=== PATIENT | female | born 1990 | race American Indian/Alaskan Native ===

== ENCOUNTER 2017-03-06 15:00 | Emergency (ER) | payer OTHER ==
[2017-03-06 15:22] VITALS: BP 111/69; PULSE 79; RESP 18; TEMP 98.1; O2SAT 100
[2017-03-06] MEDS ORDERED: Lidocaine 5% Patch TD STA (15:23)
--- NOTE | 2017-03-06 15:27 | C.PDOC ---
History Of Present Illness Patient is a 26 y/o female who presents to the ED with complaints of neck pain for the last 3 days. Patient states the pain started upon awakening and worsened daily; patient notes a limited range of motion when turning neck to the right. Patient denies taking any medication for pain relief and denies headache, dizziness, and numbness. No other complaints at this time. Chief Complaint (Nursing): Upper Extremity Problem/Injury History Per: Patient History/Exam Limitations: no limitations Onset/Duration Of Symptoms: Days (symptoms began 3 days ago. ) Current Symptoms Are (Timing): Still Present Exacerbating Factor(s): Turning (turning head to the right. ) Recent travel outside of the [place]: No Past Medical History Reviewed: Historical Data, Nursing Documentation, Vital Signs Vital Signs: Last Vital Signs Temp 98.1 F 03/06/17 15:15 Pulse 79 03/06/17 15:15 Resp 18 03/06/17 15:15 BP 111/69 03/06/17 15:15 Pulse Ox 100 03/06/17 16:10 - Medical History PMH: No Chronic Diseases Surgical History: No Surg Hx Family History: States: Unknown Family Hx - Social History Hx Tobacco Use: No Hx Alcohol Use: Yes Hx Substance Use: No - Immunization History Hx Tetanus Toxoid Vaccination: No Hx Influenza Vaccination: No Hx Pneumococcal Vaccination: No Review Of Systems Constitutional: Negative for: Fever, Weakness Cardiovascular: Negative for: Chest Pain, Palpitations Respiratory: Negative for: Cough, Shortness of Breath Musculoskeletal: Positive for: Neck Pain Neurological: Negative for: Weakness, Numbness, Headache, Dizziness Physical Exam - Physical Exam Appears: Well, Non-toxic, No Acute Distress Skin: Normal Color, Warm, Dry, No Diaphoretic, No Pale, No Rash Head: Atraumatic, Normacephalic Eye(s): bilateral: Normal Inspection Oral Mucosa: Moist Neck: Decreased ROM, Paracervical Tenderness (greater on right side. ), Other ( muscle spasm on right side. ) Chest: Symmetrical Cardiovascular: Rhythm Regular, No Murmur Respiratory: Normal Breath Sounds, No Rales, No Rhonchi, No Wheezing Back: No Vertebral Tenderness Extremity: Bilateral: Atraumatic, Normal Color And Temperature, Normal ROM Neurological/Psych: Oriented x3, Normal Speech, Other (no focal deficits. 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 She is alert and oriented and stable for discharge Disposition Counseled Patient/Family Regarding: Diagnosis, Need For Followup, Rx Given - Disposition Referrals: [facility] at [facility] [Outside] Disposition: HOME/ ROUTINE Disposition Time: 16:08 Condition: STABLE Additional Instructions: Take Motrin as needed for pain every 6 hours, with food to not upset stomach. Take Flexeril every 8 hours for muscle spasm and pain. Follow up with orthopedic if pain persists over one week. Prescriptions: Cyclobenzaprine [Cyclobenzaprine HCl] 10 mg PO TID #21 tab Ibuprofen [Motrin] 600 mg PO Q8 #30 tab Instructions: Cervical Strain (DC) Forms: [facility] (Colombian) - POA Present On Arrival: None - Clinical Impression Clinical Impression: Neck muscle spasm - Scribe Statement The provider has reviewed the documentation as recorded by the Scribenrico Jean All medical record entries made by the Scribe were at my direction and personally dictated by me. I have reviewed the chart and agree that the record accurately reflects my personal performance of the history, physical exam, medical decision making, and the department course for this patient. I have also personally directed, reviewed, and agree with the discharge instructions and disposition.
[2017-03-06] MEDS ORDERED: Lidocaine 5% Patch TD ONE (15:31)
== END 2017-03-06 16:13 | disposition home or self-care (01) ==
LOC: C.ER 15:00
DX: M62.838 Other muscle spasm (principal)

== ENCOUNTER 2018-10-11 12:44 | Emergency (ER) | payer OTHER ==
[2018-10-11 13:39] VITALS: O2SAT 100
[2018-10-11] MEDS ORDERED: guaiFENesin 100 mg/5 ml Syrup UD PO STA (14:30)
[2018-10-11] MEDS ORDERED: guaiFENesin 200 mg/10 ml Syrup UD ONE (14:39)
--- NOTE | 2018-10-11 14:45 | C.PDOC ---
History Of Present Illness 28-year-old female presents to the ED for evaluation of cough and chest congestion which began two days ago. Patient also admits to nasal congestion and rhinorrhea. She denies fever, chills, sore throat, nausea, vomiting, generalized body aches, seasonal allergies or sick contacts. Chief Complaint (Nursing): Flu-like Symptoms History Per: Patient History/Exam Limitations: no limitations Onset/Duration Of Symptoms: Days (2) Current Symptoms Are (Timing): Still Present Location Of Pain: Diffuse Myalgias Associated Symptoms: denies: Fever, Chills, Sore Throat, Nausea, Vomiting Additional History Per: Patient Past Medical History Reviewed: Historical Data, Nursing Documentation, Vital Signs Vital Signs: Last Vital Signs Temp 98.3 F 10/11/18 13:36 Pulse 75 10/11/18 13:36 Resp 20 10/11/18 13:36 BP 124/72 10/11/18 13:36 Pulse Ox 100 10/11/18 13:36 Primary Care Provider: Non [facility] Provider, - Medical History PMH: No Chronic Diseases Surgical History: No Surg Hx Family History: States: Unknown Family Hx - Social History Hx Tobacco Use: No Hx Alcohol Use: Yes Hx Substance Use: No - Immunization History Hx Tetanus Toxoid Vaccination: No Hx Influenza Vaccination: No Hx Pneumococcal Vaccination: No Review Of Systems Constitutional: Negative for: Fever, Chills ENT: Positive for: Nose Discharge, Nose Congestion Respiratory: Positive for: Cough Gastrointestinal: Negative for: Nausea, Vomiting Musculoskeletal: Positive for: Other (generalized body aches ) Physical Exam - Physical Exam Appears: Non-toxic, No Acute Distress Skin: Normal Color, Warm, Dry Head: Atraumatic, Normacephalic Eye(s): bilateral: Normal Inspection Ear(s): Bilateral: Normal Nose: No Discharge Oral Mucosa: Moist Tongue: Normal Appearing Lips: Normal Appearing Throat: No Erythema, No Exudate Neck: Normal ROM, Trachea Midline, Supple Chest: Symmetrical, No Deformity, No Tenderness Cardiovascular: Rhythm Regular, No Murmur Respiratory: Normal Breath Sounds, No Rales, No Rhonchi, No Wheezing Gastrointestinal/Abdominal: Soft, No Tenderness, No Guarding, No Rebound Neurological/Psych: Oriented x3, Normal Speech, Normal Cognition ED Course And Treatment O2 Sat by Pulse Oximetry: 100 (on RA) Pulse Ox Interpretation: Normal Medical Decision Making Medical Decision Making: Impression: 28 y/o female with cough, congestion Plan: * Robitussin PO * Sudafed PO * Flu swab * reassess and disposition Progress: Robitussin PO and Sudafed PO given. Flu swab ordered, resulted negative. On reassessment, patient is resting comfortably, showing no signs of distress and is stable for discharge. Patient is advised to f/u with her PMD within 1-2 days for further evaluation. Disposition Counseled Patient/Family Regarding: Studies Performed, Diagnosis, Need For Followup, Rx Given - Disposition Referrals: [facility] at [facility] [Outside] Disposition: HOME/ ROUTINE Disposition Time: 14:43 Condition: STABLE Additional Instructions: Take meds as prescribed Rest and Hydration Follow up with PMD in 1-2 days Return to the ED if symptoms worsen Prescriptions: Benzonatate [Tessalon Perles] 100 mg PO TID #30 sgl Pseudoephedrine HCl [Sudafed 24-Hour] 240 mg PO DAILY #7 tab.er.24h Instructions: Cough, Runny Nose, and the Common Cold (DC) Forms: [employer] (Icelandic) - Clinical Impression Clinical Impression: Cough, Nasal congestion - PA / AD TAKER / Resident Statement MD/DO has reviewed & agrees with the documentation as recorded. - Scribe Statement The provider has reviewed the documentation as recorded by the Scribe (Ester Garcia) All medical record entries made by the Scribe were at my direction and personally dictated by me. I have reviewed the chart and agree that the record accurately reflects my personal performance of the history, physical exam, medical decision making, and the department course for this patient. I have also personally directed, reviewed, and agree with the discharge instructions and disposition.
[2018-10-11 15:07] VITALS: BP 132/82; PULSE 78; RESP 18; TEMP 99.4
== END 2018-10-11 14:50 | disposition home or self-care (01) ==
LOC: C.ER 12:44
DX: R05 Cough (principal); R09.81 Nasal congestion